=== PATIENT | male | born 1985 | race Caucasian/White ===

== ENCOUNTER 2016-05-19 18:33 | Emergency (ER) | payer OTHER ==
[2016-05-19 19:41] LABS: HCT 48.7 % (42.0-52.0); HGB 16.7 g/dl (13.2-18.0); MCHC 34.3 g/dL (32.0-36.0); MCV 84.7 fL (78.0-100.0); MPV 9.6 fL (6.0-9.5); RBC 5.75 M/uL (4.70-6.00); RDW 13.2 % (11.5-14.0); WBC 8.8 K/uL (4.0-10.5)
[2016-05-19 19:52] LABS: BENZODIAZEPINES NEGATIVE (NEGATIVE)
[2016-05-19 19:53] LABS: AMPHETAMINES NEGATIVE (NEGATIVE); BARBITURATES NEGATIVE (NEGATIVE); COCAINE POSITIVE (NEGATIVE); MARIJUANA (THC) NEGATIVE (NEGATIVE); METHADONE NEGATIVE (NEGATIVE); TRICYCLIC ANTIDEPRESSANT NEGATIVE (NEGATIVE)
[2016-05-19 19:54] LABS: ALBUMIN 4.8 g/dL (3.5-5.0); BILIRUBIN - TOTAL 0.8 mg/dL (0.1-1.0); CREATININE 0.9 mg/dL (0.7-1.2); GLOBULIN (CALCULATION) 3.2 g/dL (2.2-4.2)
[2016-05-19 19:55] LABS: ALCOHOL (ETOH) MEDICAL NONE DETECTED; SALICYLATE < 6 ug/mL (0-300)
[2016-05-19 20:00] LABS: ACETAMINOPHEN (TYLENOL) < 5.0 ug/mL (10.0-30.0)
== END 2016-05-20 00:43 | disposition other institution (70) ==
LOC: FER 18:33
PROVIDERS: Emergency Medicine
DX: R45.851 Suicidal ideations (principal); Z91.5 Personal history of self-harm
CPT/HCPCS: 36415; 80053; 80305; 99285; G0480

== ENCOUNTER 2016-07-16 06:38 | Emergency (ER) | payer OTHER | END 2016-07-16 07:52 | disposition home or self-care (01) | LOC: FER 06:38 | DX: R11.2 Nausea with vomiting, unspecified (principal); F17.200 Nicotine dependence, unspecified, uncomplicated | CPT/HCPCS: 99283 ==